=== PATIENT | male | born 1955 | race Caucasian/White ===

== ENCOUNTER 2016-07-11 00:23 | Inpatient (IN) | payer OTHER ==
[~2016-07-11] VITALS: Ht 188 cm; Wt 108.1 kg
[2016-07-11] VITALS (15 sets, daily range): BP systolic 112–150; BP diastolic 71–94; PULSE 80–99; RESP 16–27; O2SAT 92–100
--- NOTE | 2016-07-11 00:56 | ED.REPORT ---
HPI-Abd Pain M 40 and Over Date of Service Jul 11, 2016 ED Provider: Yousuf Cagle DO A 61 year old male with a history of appendectomy presents to the ED complaining of abdominal pain on this evening. He began to experience left- sided and mid abdominal pain this evening, with occasional spasms of sharp pain. This has been accompanied by nausea and vomiting, though the pt denies diarrhea or fever. The pt also denies any history of diverticulitis or kidney stones. Nursing Notes Stated Complaint: ABDOMINAL PAIN Chief Complaint: Male Abdominal Pain Nursing Notes Reviewed: Yes Allergies: Coded Allergies: No Known Allergies (Unverified , 07/11/16) General Time Seen by MD: 00:56 Chief Complaint Abdominal pain Hx Obtained From: Patient Arrived By: Walk-in Sudden in Onset?: No Onset Occurred: 1 - 4 hours ago Symptom Duration: Since onset Recent Healthcare: No recent doctor visit, No recent hospitalization Similar Sx Previous: No Past Medical History Past Medical History none reported Past Surgical History Reports: Appendectomy Reports: Back/neck surgery Smoking History Unknown if Ever Smoker Social History Alcohol Use: "Social" Other Social History: Good social support Ambulatory Status Independent Review of Systems Constitutional: Denies: Fever GI: Reports: Abdominal pain, Nausea, Vomiting, Denies: Diarrhea Musculoskeletal: Denies: Back pain Complete sys rev & neg: except as marked. Physical Exam Initial Vital Signs Vital Signs (First) Date Time Temp Pulse Resp B/P Pulse Ox O2 Delivery O2 Flow Rate FiO2 07/11/16 00:30 36.4 98 24 135/93 99 Room Air Initial VS: Reviewed, Vital signs abnormal General/Constitutional: Awake, Alert Respiratory / Chest: Atraumatic, Breath sounds NL, Breath sounds = bilat, No respiratory distress Cardiovascular: Heart rate NL, Regular rhythm, Heart sounds NL Abdomen: Atraumatic, Soft moderate left-sided and LLQ tenderness Back: Atraumatic, Full range of motion Head / Eyes: Atraumatic, Normocephalic, PERRL, EOMI ENT: Atraumatic, Airway patent, Mucous membranes moist Skin: Atraumatic, Color NL, No rash, Warm, Dry Neurologic: Oriented X3, Speech NL, No motor deficits, No sensory deficits Neck: Atraumatic, Supple, Full range of motion Upper Extremity / MS: Atraumatic, Full range of motion Lower Extremity / Pelvis / MS: Atraumatic, Full range of motion Psychiatric: Affect NL, Mood NL Interpretation & Diagnostics Lab Results Interpretation Result Diagram: 07/11/16 0120 07/11/16 0120 Test 07/11/16 01:20 07/11/16 02:00 White Blood Count 13.9th/mm3 (3.8-10.1) Red Blood Count 4.72mil/mm3 (4.40-5.80) Hemoglobin 15.0g/dL (13.8-17.2) Hematocrit 43.4% (41.0-50.0) Mean Corpuscular Volume 91.9fL (81-100) Mean Corpuscular Hemoglobin 31.8pg (27.0-35.0) Mean Corpuscular Hemoglobin Concent 34.6% (32.0-37.0) Red Cell Distribution Width 14.0% (12.3-15.4) Platelet Count 267bil/L (150-400) Neutrophils (%) (Auto) 78.9% (40-74) Lymphocytes (%) (Auto) 12.8% (14-46) Monocytes (%) (Auto) 7.3% (4-12) Eosinophils (%) (Auto) 0.4% (0-5) Basophils (%) (Auto) 0.3% (0-3) Prothrombin Time 10.3sec (8.1-12.5) Prothromb Time International Ratio 0.96ratio Sodium Level 139mEq/L (134-144) Potassium Level 4.0mEq/L (3.5-5.2) Chloride Level 99mEq/L (97-108) Carbon Dioxide Level 22mmol/L (18-29) Blood Urea Nitrogen 25mg/dL (8-27) Creatinine 1.44mg/dL (0.76-1.27) Estimat Glomerular Filtration Rate 53mL/min (>59) Glucose Level 143mg/dL (60-99) Calcium Level 9.5mg/dL (8.5-10.1) Magnesium Level 2.1mg/dL (1.6-2.6) Total Bilirubin 0.4mg/dL (0.0-1.2) Aspartate Amino Transf (AST/SGOT) 19U/L (0-50) Alanine Aminotransferase (ALT/SGPT) 27U/L (0-44) Alkaline Phosphatase 64U/L (25-160) Troponin T 0.010ug/L (0.0-0.011) Total Protein 7.0g/dL (6.4-8.4) Albumin 4.4g/dL (3.4-5.0) Lipase 31U/L (13-60) Urine Color Yellow (YELLOW) Urine Appearance Clear (CLEAR,HAZY) Urine pH 6.0 (5.0-8.0) Urine Specific [place] 1.020 (1.003-1.035) Urine Protein Negativemg/dL (NEG,TRACE) Urine Glucose (UA) Negativemg/dL (NEGATIVE) Urine Ketones Negativemg/dL (NEGATIVE) Urine Occult Blood Trace (NEGATIVE) Urine Nitrite Negative (NEGATIVE) Urine Bilirubin Negative (NEGATIVE) Urine Urobilinogen Normalmg/dL (NORMAL) Urine Leukocyte Esterase Negative (NEGATIVE) Urine RBC 0-2/hpf (0-2) Urine WBC 0-5/hpf (0-5) Urine Epithelial Cells Occasional/hpf (NONE-MOD) Urine Crystals None seen (NONE SEEN) Urine Bacteria Few/hpf (NONE-FEW) Urine Hyaline Casts None/lpf (NONE) Urine Granular Casts None seen (NONE SEEN) Urine Waxy Casts None seen (NONE SEEN) Urine Red Blood Cell Casts None seen (NONE SEEN) Urine White Blood Cell Casts None seen (NONE SEEN) Urine Mucus Present (None Seen) Urine Trichomonas None seen (NONE SEEN) Urine Yeast None (NONE SEEN) Urinalysis Comment None Urine Culture Reflexed Not indicated Lab Results Interpretation: Elevated white blood count at 13,900, mildly elevated creatinine, mildly elevated nonfasting glucose. Pulse Oximetry Interpretation Pulse Oximetry Interpretation: 99% on room air Pulse Oximetry: Pulse Ox normal ECG Interpretation ECG Interpretation: normal sinus rhythm with a rate of 76 Time: 01:39 Interpreted by: ED physician CT Abd / Pelvis Interpretation CONCLUSION: Moderate SBO. 4.2cm AAA. Prostatomegaly. Radiologist: Milagros Reid MD 07/01/2016-2:57:44 AM PDT Study type: Abdominal CT IV contrast Interpretation / Wet Read by: Interpret - Radiologist Re-Eval/Medical Decision Med Decision/Clinical Course 61-year-old male whose workup was initiated by Dr. Cagle and turned over to me at change of shift with CT pending. CT shows that he has a small bowel obstruction with a small amount of free fluid. His case was discussed with Dr. Díaz and Dr. Foy. He has an elevated white blood count and a mildly elevated troponin. He was started on Zosyn and hydration. NG tube was placed. He will be admitted to the hospital for conservative management with pending surgical consultation. Source of Hx: Old records Time of Eval: 03:05 Re-Evaluation/Progress Note: Care assumed by Dr. Salomon. Patient was informed of the results of his CT scan, with the finding of an SBO. Patient will be admitted to the hospital for further care. NG tube will be placed. AAA was also identified on CT scan, which the patient did not know about previously. Patient understands and agrees with this plan. All questions were addressed. Consultation #1: Referral / Consult Name: Lorene Foy DO Consulted With: Hospitalist Call Returned at: 03:10 Paraeducator: Will see patient, Agrees with eval, Agrees with plan, Accepts admit Note: Spoke with Dr. Foy, hospitalist, who agrees to accept admit. Requests surgeon consult. Consultation #2: Referral / Consult Name: Hernesto Díaz MD Consulted With: Surgeon Call Returned at: 03:16 Paraeducator: Will see patient, Agrees with eval, Agrees with plan Note: Spoke with Dr. Díaz, surgeon, who agrees to act as consult. Counseled Regarding: Diagnosis, Lab results, Need for admission Discharge & Departure Primary Impression: SBO (small bowel obstruction) Additional Impression: AAA (abdominal aortic aneurysm) without rupture Disposition: ADMITTED TO HOSPITAL Vital Signs - All Vital Signs Date Time Temp Pulse Resp B/P Pulse Ox O2 Delivery O2 Flow Rate FiO2 07/11/16 00:30 36.4 98 24 135/93 99 Room Air )( All Prior VS Reviewed: Yes Condition: Stable Referrals: Eloy Brown ND (PCP) Care Transferred to: Dr. Salomon Care Transferred at: 03:00 Scribe Attestation Portions of this note were transcribed by Viry Aguilar. I, Dr. Cagle personally performed the history, physical exam and medical decision-making; I reviewed and confirmed the accuracy of the information in the transcribed note. Signed by: Aron Lorenzo, 07/11/16 and 0153. Portions of this note were transcribed by Eunice Contreras. I, Dr. Salomon personally performed the history, physical exam and medical decision-making; I reviewed and confirmed the accuracy of the information in the transcribed note. Signed by: Aron Parsons, 07/11/2016 0329. copies to: Eloy Brown ND, Todd P DO Jul 11, 2016 00:56 VIRY AGUILAR Jul 11, 2016 01:19 Eunice Contreras Jul 11, 2016 03:10 Nakul Salomon MD Jul 11, 2016 07:04
[2016-07-11] MEDS ORDERED: 0.9% Sodium Chloride 1,000 ML IV ONE ×2 (01:05→02:00)
[2016-07-11 01:25] LABS: BASOPHILS % (AUTO) 0.3 % (0-3); EOSINOPHILS % (AUTO) 0.4 % (0-5); MONOCYTES % (AUTO) 7.3 % (4-12); Mean Corpuscular Hemoglobin 31.8 pg (27.0-35.0); Mean Corpuscular Volume 91.9 fL (81-100); NEUTROPHILS % (AUTO) 78.9 % (40-74); Platelet Count 267 bil/L (150-400)
[2016-07-11 01:43] LABS: INR 0.96 ratio
[2016-07-11] MEDS: Ondansetron 2 mg/mL 2 mL Inj IVPUSH PRN ×2 (01:43→08:21)
[2016-07-11] MEDS: HYDROmorphone 0.5 mg/0.5 mL iSecure Syringe IVPUSH PRN ×2 (01:43→03:24)
[2016-07-11 02:03] LABS: Magnesium 2.1 mg/dL (1.6-2.6); TROPONIN T 0.01 ug/L (0.0-0.011)
[2016-07-11 02:29] LABS: APPEARANCE,URINE CLEAR (CLEAR,HAZY); COLOR,URINE YELLOW (YELLOW); OCCULT BLOOD,URINE TRACE (NEGATIVE); UROBILINOGEN,URINE NORMAL (NORMAL)
[2016-07-11] MEDS ORDERED: Piperacillin-Tazo 3.375 Gm Inj 3.375 GM in Dextrose 5% Minibag Plus 50 ML IV ONE (02:50)
[2016-07-11] MEDS ORDERED: Ondansetron 2 mg/mL 2 mL Inj IVPUSH PRN ×2 (03:35→16:45)
[2016-07-11] MEDS: 0.9% Sodium Chloride 1,000 ML IV SCH ×2 (04:52→14:34)
--- NOTE | 2016-07-11 05:28 | PCM.HPMED ---
Subjective Date of Service Jul 11, 2016 Primary Provider: Admitting Physician: Lorene Foy DO Primary Care Physician: Eloy Brown ND Attending Physician: Lorene Foy DO Admit Status: From the Emergency Department Chief Complaint: abdominal pain History of Present Illness: 61yoM with minimal past medical history admitted due to concern for small bowel obstruction. History obtained from patient and . Prior to presentation patient began having diffuse 6-8/10 abdominal pain following a meal. He has never felt pain similar to this but does endorse GERD symptoms in the past two weeks. With pain worsening he came to the ED for further evaluation. While on his way he had one bout of emesis. Unknown by patient if hematemesis present. Past history includes appendectomy. No history of colonoscopy. Family history of pancreatic cancer. Review of Systems: complete review of symptoms obtained. positive as per HPI otherwise negative. Allergies Coded Allergies: No Known Allergies (Unverified , 07/11/16) Home Medications none PMH Possible GERD Surgical History appendectomy Family History Father: pancreatic cancer Social History Occupation: [employer] Hx Alcohol Use: Yes Alcoholic Drinks Per Day: 1-2 glasses of wine. Hx Substance Use: No Smoking Status: Unknown if Ever Smoker Living Arrangement: with Family (DPOA ) Exam Vital Signs Vital Sign - Last Date Time Temp Pulse Resp B/P Pulse Ox O2 Delivery O2 Flow Rate FiO2 07/11/16 05:17 83 07/11/16 03:45 36.2 16 118/70 98 Room Air Intake and Output 07/10/16 07/10/16 07/11/16 Cumulative From/Thru 15:00 23:00 07:00 07/11/16 00:30 - 07/11/16 04:02 Intake Total 2000 ml 2000 ml Balance 2000 ml 2000 ml Intake IV Total 2000 ml 2000 ml Exam General: Alert, Oriented X3, Cooperative, No acute Distress Eyes: PERRLA, Scleral Anicteric Mouth: Mouth Normal, Mucous Membranes Dry/[place] Neck: Supple, no Thyromegaly, trachea central. Chest & Lungs: Clear to auscultation & percussion, No adventitious breath sounds, no crackles, no wheeze Cardiovascular: Normal S1, Normal S2, No Murmurs/Rubs/Gallops, Regular Rate/ Rhythm, Murmur, Other (No JVD, no peripheral edema) Pulses: Radial (present and equal), Dorsalis Pedi (present and equal) Abdomen: Soft, tender in the epigastric region, Non-distended, decreased bowel tones. Musculoskeletal: Unremarkable. Normal range of motion, no swollen or erythematous joints Extremities: No edema, no cyanosis, no clubbing. Skin: No rashes. Warm and dry, no erythematous areas Neurological: Grossly neurologically intact, has generalized weakness, Normal Speech, Sensation Intact Lymphatic: Lymph nodes Cervical and Axillary not palpable Lab and Diagnostics Result Diagram: 07/11/16 0120 07/11/16 012 X-Rays, CTs and MRIs CT Abd / Pelvis Interpretation CONCLUSION: Moderate SBO. 4.2cm AAA. Prostatomegaly. Radiologist: Milagros Reid MD 07/01/2016-2:57:44 AM PDT Study type: Abdominal CT IV contrast Interpretation / Wet Read by: Interpret - Radiologist Assessment & Plan 61yoM with minimal past medical history admitted due to concern for small bowel obstruction. Small bowel obstruction, acute, POA -NPO -mIVF -NG to low intermittent suction -surgery consulted prior to admission, recs appreciated DOMINGA, acute, POA -likely acute, no history of renal dysfunction -pre-renal vs intrarenal -repeat creatinine -avoid nephrotoxic agents Elevated glucose, acute -no h/o diabetes -hgbA1c pending Pain Evaluation: Adequate Pain Control GI Prophylaxis: Not indicated VTE Prophylaxis: Sub-Q Heparin (Unfractionated) Resuscitation Status: CPR: Attempt Resuscitation Lorene Foy DO Jul 11, 2016 05:28
--- NOTE | 2016-07-11 05:36 | NUR ---
Admit to room 3030 @ 04:00 with abd pain. Arrived with NG Tube placed, verified 65cm and connected to vacuum intermittent low suction draining clear with minimal specs of earl red blood from minor nose bleed. VSS @ 112/73 p 83 afebrile 37.0 and 92% O2 sat on RA. Oriented to room and POC on whiteboard. Up independent to BR and refused non-slip socks indicating these are fine. Takes no medications at home, high risk TERA added to process plans, uses mouth bite guard @ home, family agreed to bring in if staying another night. Abd pain 03/23 and acceptable.
[2016-07-11] MEDS ORDERED: Succinylcholine Chloride 20 mg/mL 5 mL Inj ONE (07:29)
[2016-07-11] MEDS ORDERED: Neostigmine 1 mg/mL 10 mL Inj ONE (07:29)
[2016-07-11] MEDS ORDERED: Ondansetron 2 mg/mL 2 mL Inj ONE ×2 (07:29)
[2016-07-11] MEDS ORDERED: Rocuronium 10 mg/mL 5 mL Inj ONE (07:29)
[2016-07-11] MEDS ORDERED: fentaNYL-PF 50 mCg/mL 2 mL Inj ONE (07:29)
[2016-07-11] MEDS ORDERED: Propofol 10,000 mCg/mL 20 mL Inj ONE (07:29)
[2016-07-11] MEDS ORDERED: EPHEDrine/NS 5 mg/mL 5 mL Syringe ONE (07:29)
[2016-07-11] MEDS ORDERED: Glycopyrrolate 0.2 MG/ML 1mL Inj ONE (07:29)
--- NOTE | 2016-07-11 07:29 | DRSVH ---
PROCEDURE: CT ABDOMEN AND PELVIS WITH CONTRAST ([id number]) INDICATIONS: llq pain, vomiting TECHNIQUE: After the administration of intravenous contrast, 5 mm thick sections acquired from the diaphragm to the symphysis. 5 mm coronal and sagittal reformats were acquired. For radiation dose reduction, the following was used: automated exposure control, adjustment of mA and/or kV according to patient siz e. COMPARISON: None. FINDINGS: Image quality: Excellent. ABDOMEN: Lung bases: Lung bases are clear. Heart size is normal. Solid organs: Liver is mildly enlarged with steatosis. The spleen is normal in size. There are sever al ill-defined areas of subcentimeter low-attenuation within the liver, too small to definitively vincent racterize. There is a focal area of enhancement in the posterior right hepatic lobe measuring 16 mm. No priors are available for comparison. Gallbladder is contracted but grossly unremarkable. Biliary system is non dilated. Pancreas enhances normally. No adrenal nodules. Kidneys demonstrate normal size and enhancement, without hydronephrosis. Peritoneum and bowel: There are dilated fluid filled small bowel loops predominantly within the mid a bdomen. There is minimal dependent pelvic fluid. Colonic diverticula are present without visualized i nflammatory change. Colonic stool is present. Nodes and vessels: No retroperitoneal or mesenteric adenopathy by size criteria. Aorta demonstrates infrarenal aneurysmal dilation measuring 46 mm in transverse dimension. A Miscellaneous: No ventral hernias. PELVIS: Genitourinary: Bladder wall thickness is diffusely thickened. It is incompletely distended. The pros henderson gland is enlarged. Miscellaneous: No inguinal hernias or adenopathy. Bones: No suspicious bony lesions. No vertebral body compression fractures. IMPRESSION: 1. Dilated fluid-filled small bowel loops most suggests a partial small bowel obstruction. No definit e transition point identified. 2. Diverticulosis. 3. Infrarenal abdominal aortic aneurysm as above. No priors are available for comparison. Recommend i nterval followup to document stability. 4. Prostate hypertrophy. Recommend correlation to PSA levels. 5. Prominent stool suggestive of constipation. 6. Nonspecific punctate foci of low attenuation within the liver, too small to definitively character ize. No priors are available for comparison. In addition, there is a 16 mm focus of enhancement withi n the posterior right hepatic lobe as above. This could be benefits representative of a hemangioma. Focal ultr asound may be obtained for additional evaluation Dictated by: Leeann Goldsmith M.D. on 07/11/2016 at 7:21 Approved by: Leeann Goldsmith M.D. on 07/11/2016 at 7:27
[2016-07-11 07:50] LABS: BASOPHILS % (AUTO) 0.3 % (0-3); EOSINOPHILS % (AUTO) 0.2 % (0-5); MONOCYTES % (AUTO) 8.8 % (4-12); Mean Corpuscular Hemoglobin 32.2 pg (27.0-35.0); Mean Corpuscular Volume 93.3 fL (81-100); NEUTROPHILS % (AUTO) 75.2 % (40-74); Platelet Count 247 bil/L (150-400)
[2016-07-11] MEDS: Heparin 5,000 Unit/mL Inj SUBQ SCH ×3 (08:30→23:15)
--- NOTE | 2016-07-11 09:49 | DRSVH ---
PROCEDURE: X-RAY ACUTE ABDOMINAL SERIES ([id number]) INDICATIONS: F/U SBO TECHNIQUE: One view chest and two views of the abdomen were acquired. COMPARISON: None. FINDINGS: Surgical changes and devices: None. Chest: Lungs are clear. Heart size is normal. No pleural effusions. No pneumoperitoneum. Abdomen: Bowel gas pattern demonstrates dilated fluid-filled loops of small bowel with air-fluid lev els. Appearance is not significantly changed compared to 07/11/16 CT exam. Contrast is noted within th e rectum. No suspicious calcifications. Visualized solid organ contours appear normal. Bones: No suspicious bony lesions. IMPRESSION: Partial small bowel obstruction without significant interval change. Dictated by: Leeann Goldsmith M.D. on 07/11/2016 at 9:42 Approved by: Leeann Goldsmith M.D. on 07/11/2016 at 9:48
--- NOTE | 2016-07-11 13:25 | NUR ---
Social Work Note: Screen Note Data& Assessment: EMR reviewed. Patient is a 61 year old male admitted on 07/11/16 for Abdominal Pain. Pt has [employer] for insurance coverage and sees Eloy Brown MD for primary care. Pt lives in [place] with family and is independent at baseline. Pt is currently independent in his room. No discharge needs identified at this time. SW to continue to follow if any needs arise. Plan: Anticipated discharge home via POV when medically ready. No discharge needs identified at this time. SW to continue to follow if any needs arise. Arcelia Mcmillan, DIANNA, ACM
--- NOTE | 2016-07-11 13:35 | CONS ---
[address] [address] CONSULTATION REPORT PATIENT: AL LIRIANO : 1955 MR#: [id number] ADMIT: 07/11/2016 JOB ID: [id number] DATE OF SERVICE: HISTORY OF PRESENT ILLNESS: I have been asked to see this 61-year-old man by the emergency department and the hospitalist service. Admitted to the medicine service with a small bowel obstruction. The patient has never had obstructive symptoms before. The only surgical history is of a distant appendectomy, done open, many decades ago. No chronic issues of obstipation or constipation. He has been trying to eat "more healthily," including raw carrots, and after dinner yesterday evening, began having mid abdominal pain and cramping with nausea and vomiting, decreased flatus, and presented to the emergency department. PAST MEDICAL HISTORY: Back and neck surgery, appendectomy. MEDICATIONS: None. ALLERGIES: None. SOCIAL HISTORY: , negative daily alcohol use, negative tobacco. FAMILY HISTORY: Noncontributory. REVIEW OF SYSTEMS: Cardiac: Negative paroxysmal nocturnal dyspnea or dyspnea on exertion. Negative rapid heart rate. Pulmonary: Negative chronic cough, history of pneumonia, chronic shortness of breath. GI negative except as above. Musculoskeletal negative. Neuro negative. PHYSICAL EXAMINATION: The patient is seen in his hospital room in no acute distress with nasogastric tube in place. Nasogastric tube output has not been recorded but is bilious in the drain tube. Temperature is recorded at 37. Pulse is in the 80s. Blood pressure was last recorded at 112/73. His sclerae are clear. Lungs are clear. Heart sounds are regular. His abdomen is distended, high-pitched bowel tones with rushes and tinkles, tympanic. There is no focal tenderness. Rectal is not performed. LABORATORY: Admission labs, white count was 13.9, repeat this morning is 11.1. His hematocrit went from 43 to 40 with hydration. Chemistries are normal except for mild elevation of his creatinine at 1.44. His glucose was 143. Lipase and LFTs were normal. His lactic acid last night was 2.4 but repeat is 1.5. IMAGING: I have seen his abdominal CT, both the report and the images, and this does show what appears to be a high-grade small bowel obstruction with a transition somewhere in the right mid abdomen consistent with his appendectomy scar. IMPRESSION/PLAN: Relative onset of partial small bowel obstruction with transition point consistent with adhesive disease from his appendectomy. Patient appears to be fairly obstructed still despite placement of NG tube. I will repeat plain films today and consider recommending early surgical intervention if the dilated loop of small bowel seen on the bend up film of the CT scan is increasing in size. I outline the general recommendation of nasogastric tube decompression and surgery if the patient has not improved within the first 24 hours, but I will re-evaluate him this afternoon after his repeat films.
--- NOTE | 2016-07-11 15:50 | NUR ---
OR Pt. transferred to OR at 1550 in his own bed. NG clamped and IV SL by OR nurse. Informed consent signed.
[2016-07-11] MEDS ORDERED: Lactated Ringer's 500 ML IV PRN (16:44)
[2016-07-11] MEDS ORDERED: Lactated Ringer's 1,000 ML IV SCH (16:44)
--- NOTE | 2016-07-11 16:44 | PCM.HPANE ---
Patient Data Surgeon Admitting Provider:Lorene Foy DO Attending Provider:Lorene Foy DO Primary Care Physician:Eloy Brown ND Other Provider: Reason for Visit Abdominal Pain Ht/WT & BMI Height (Feet): 6 Height (Inches): 2.00 Weight (Kilograms): 104.550 Body Mass Index 29.58 Allergies Coded Allergies: No Known Allergies (Unverified , 07/11/16) Past Anesthesia History Anesthesia History: Denies:: Anesthesia Reactions Diabetes History Hx Diabetes?: No MRSA MRSA: No History History of ENT Problems?: No HEENT History: Denies:: Abnormal Airway Cataracts Difficult Intubation Dysphagia Glaucoma Hearing Problem Sinus Problem TMJ Denture Type: None Teeth Condition: Within Normal Limits Hx of Heart Problems?: Yes Cardiovascular History: Positive for:: Heart Murmur Denies:: Congestive Heart Failure Hypertension Hx of Respiratory Problem?: No Respiratory History: Denies:: Tuberculosis Hx Neurologic Problems?: No Hx of GI Problems?: Yes Other History/Comment Partial bowel obstruction Hx of Problems?: Yes Genitourinary History: Positive for:: Urinary Tract Infection Male Hx: Positive for:: Prostate Problems (Intermittent - BPH) Denies:: Scrotal Mass Testicular Surgery Hx Musculoskeletal Problems?: Yes Musculoskeletal History: Positive for:: Back Injury (Broken neck Approx 1997) Denies:: Joint Replacement Musculoskeletal Trauma Hx of Psycho/Social Problems?: No Hx Surgeries?: Yes (Neck surgery, Appy, AC separation) Hx Any Other Health Problems?: Yes Other History: Positive for:: Hospitalization History Blood Transfusions: Positive for:: Accept Blood Products? Denies:: Blood Transfuse Reaction Blood Transfusions (Can't recall) Hx Diabetes: No Occupation: [employer] Hx Alcohol Use: YesAlcoholic Drinks Per Day: 1-2 glasses of wine.Hx Substance Use: No Smoking Status: Unknown if Ever Smoker Have You Smoked inLast 12 mo: No Stop/Bang Treated for Sleep Apnea?: Yes Do You Have a CPAP Machine?: No S-Snoring: Do You Snore Loudly: Yes T-Tired: feel tired, fatigued: Yes O-Obsered: Observed not breath: Yes P-Blood Pressure: treated: No B- Body Mass Index > 35 kg/m2: No A- Age over 50: Yes N- Neck Large Circumference: Yes G- Gender Male: Yes TERA Total Score: 5 Risk Assessment Category Category 1A: Patient has history of documented sleep apnea, and HAS NOT received any narcotic, sedative or anesthesia administration during this stay. Category 1B: Patient has history of documented sleep apnea, and HAS received any narcotic , sedative or anesthesia administration during this stay Category 2: Patient has SUSPECTED Obstructive Sleep Apnea, and HAS received any narcotic , sedative or anesthesia administration during this stay. Category 3: Patient has SUSPECTED Obstructive Sleep Apnea and HAS NOT received narcotic, sedative or anesthesia administration during this stay. Category 4: Outpatient in Procedural Areas with known sleep apnea or who screen positive for High Risk via the STOP/BANG questionnaire. Exam Exam Vital Signs Vital Signs Date Time Temp Pulse Resp B/P Pulse Ox O2 Delivery O2 Flow Rate FiO2 07/11/16 12:34 36.7 95 18 129/81 96 Room Air 07/11/16 10:38 36.8 80 18 137/88 95 Room Air 07/11/16 09:10 83 General Appearance: Alert, Oriented X3, Cooperative HEENT/AIRWAY: MP 1, MP 2, MP 3 Lungs: Clear to Auscultation, Normal Air Movement Heart: Exam Unremarkable, Regular Rate/Rhythm Meds/Labs/Diagnostics Admission Meds Current Medications Sodium Chloride 1,000 ml @ 0 mls/hr Q0M ONCE IV Last administered on 01:43; Start 07/11/16 at 01:05; Stop 07/11/16 at 01:07; Status DC Sodium Chloride 1,000 ml @ 0 mls/hr Q0M ONCE IV Last administered on 02:17; Start 07/11/16 at 02:00; Stop 07/11/16 at 02:01; Status DC Piperacillin Sod/ Tazobactam Sod 3.375 gm/Dextrose/ Water 50 ml @ 100 mls/hr ONCE ONCE IV Last administered on 07/11/16 03:25; Start 07/11/16 at 02:50; Stop 07/11/16 at 03:19; Status DC Sodium Chloride (Normal Saline) 1,000 ml @ 100 mls/hr Q10H IV Last administered on 07/11/16 14:34; Start 07/11/16 at 03:35 Labs Test 07/11/16 01:20 07/11/16 02:00 07/11/16 03:45 07/11/16 07:35 Prothrombin Time 10.3sec (8.1-12.5) Prothromb Time International Ratio 0.96ratio Sodium Level 139mEq/L (134-144) Potassium Level 4.0mEq/L (3.5-5.2) Chloride Level 99mEq/L (97-108) Carbon Dioxide Level 22mmol/L (18-29) Blood Urea Nitrogen 25mg/dL (8-27) Creatinine 1.44mg/dL (0.76-1.27) Estimat Glomerular Filtration Rate 53mL/min (>59) Glucose Level 143mg/dL (60-99) Calcium Level 9.5mg/dL (8.5-10.1) Magnesium Level 2.1mg/dL (1.6-2.6) Total Bilirubin 0.4mg/dL (0.0-1.2) Aspartate Amino Transf (AST/SGOT) 19U/L (0-50) Alanine Aminotransferase (ALT/SGPT) 27U/L (0-44) Alkaline Phosphatase 64U/L (25-160) Troponin T 0.010ug/L (0.0-0.011) Total Protein 7.0g/dL (6.4-8.4) Albumin 4.4g/dL (3.4-5.0) Lipase 31U/L (13-60) Urine Color Yellow (YELLOW) Urine Appearance Clear (CLEAR,HAZY) Urine pH 6.0 (5.0-8.0) Urine Specific Coleman 1.020 (1.003-1.035) Urine Protein Negativemg/dL (NEG,TRACE) Urine Glucose (UA) Negativemg/dL (NEGATIVE) Urine Ketones Negativemg/dL (NEGATIVE) Urine Occult Blood Trace (NEGATIVE) Urine Nitrite Negative (NEGATIVE) Urine Bilirubin Negative (NEGATIVE) Urine Urobilinogen Normalmg/dL (NORMAL) Urine Leukocyte Esterase Negative (NEGATIVE) Urine RBC 0-2/hpf (0-2) Urine WBC 0-5/hpf (0-5) Urine Epithelial Cells Occasional/hpf (NONE-MOD) Urine Crystals None seen (NONE SEEN) Urine Bacteria Few/hpf (NONE-FEW) Urine Hyaline Casts None/lpf (NONE) Urine Granular Casts None seen (NONE SEEN) Urine Waxy Casts None seen (NONE SEEN) Urine Red Blood Cell Casts None seen (NONE SEEN) Urine White Blood Cell Casts None seen (NONE SEEN) Urine Mucus Present (None Seen) Urine Trichomonas None seen (NONE SEEN) Urine Yeast None (NONE SEEN) Urinalysis Comment None Urine Culture Reflexed Not indicated Lactic Acid Level 1.5mmol/L (0.4-2.0) White Blood Count 11.1th/mm3 (3.8-10.1) Red Blood Count 4.35mil/mm3 (4.40-5.80) Hemoglobin 14.0g/dL (13.8-17.2) Hematocrit 40.6% (41.0-50.0) Mean Corpuscular Volume 93.3fL (81-100) Mean Corpuscular Hemoglobin 32.2pg (27.0-35.0) Mean Corpuscular Hemoglobin Concent 34.5% (32.0-37.0) Red Cell Distribution Width 14.0% (12.3-15.4) Platelet Count 247bil/L (150-400) Neutrophils (%) (Auto) 75.2% (40-74) Lymphocytes (%) (Auto) 15.3% (14-46) Monocytes (%) (Auto) 8.8% (4-12) Eosinophils (%) (Auto) 0.2% (0-5) Basophils (%) (Auto) 0.3% (0-3) Plan Impression Patient chart reviewed, patient interviewed and anesthestic plan with risks, benefits, and alternatives discussed, and informed consent obtained. ASA Physical Status: ASA2 Plus Emergency Anesthetic Plan: GA Bene/Risks/Altern/Consents: Yes HP Complete Prior to Induction: Yes Hernesto Wu MD Jul 11, 2016 16:44
[2016-07-11] MEDS ORDERED: EPHEDrine Sulfate 50 mg/mL Inj IVPUSH PRN (16:45)
[2016-07-11] MEDS ORDERED: Dexamethasone 4 mg/mL Inj IVPUSH PRN (16:45)
[2016-07-11] MEDS ORDERED: MetoCLOpramide 5 mg/mL 2 mL Inj IVPUSH PRN (16:45)
[2016-07-11] MEDS ORDERED: Phenylephrine 10,000 mCg/mL Inj IVPUSH PRN (16:45)
[2016-07-11] MEDS ORDERED: HYDROmorphone 1 mg/mL Inj IVPUSH PRN (16:45)
[2016-07-11] MEDS ORDERED: fentaNYL-PF 50 mCg/mL 2 mL Inj IVPUSH PRN (16:45)
[2016-07-11] MEDS ORDERED: Lactated Ringer's 1,000 ML IV ONE ×2 (16:55→17:41)
[2016-07-11] MEDS ORDERED: Bupivacaine-MPF 0.25%/EPI 30 mL Inj INJ ONE (17:23)
--- NOTE | 2016-07-11 17:57 | PCM.ANEP1 ---
Post Anesthesia Phase 1 PACU Phase 1 Assessment Vital Signs Vital Signs Date Time Temp Pulse Resp B/P Pulse Ox O2 Delivery O2 Flow Rate FiO2 07/11/16 17:51 37.2 85 27 146/80 100 Simple Mask 8 07/11/16 12:34 36.7 95 18 129/81 96 Room Air 07/11/16 10:38 36.8 80 18 137/88 95 Room Air Anesthetic Administered: GA Level of Alertness: Awake, talking Pain: No (Level 3 - back) Pain Scale Score: 2 Nausea or Vomiting: No Cardiovascular Function and Hy: Yes Oxygen Delivery: Simple Mask Lungs: Clear to Auscultation, Normal Air Movement Complications: No Hernesto Wu MD Jul 11, 2016 17:57
--- NOTE | 2016-07-11 18:50 | NUR ---
Post-op Pt. returned to [facility] at 1831. On arrival, he was alert, ARTIS, and talking. 3 lap. sites on. L. abdomen. Dressing (telfa and bio-occlusive) CDI. Pt. denied any pain.
--- NOTE | 2016-07-11 18:59 | OP ---
[address] [address] OPERATIVE REPORT PATIENT: HERNESTO LIRIANO : 1955 MR#: [id number] ADMIT: 07/11/2016 JOB ID: [id number] DATE OF SURGERY: 07/11/2016 PREOPERATIVE DIAGNOSIS(ES): Small bowel obstruction. POSTOPERATIVE DIAGNOSIS(ES): Small bowel obstruction PROCEDURE: Laparoscopic lysis of adhesions. SURGEON: Dr. Hernesto Díaz. LEGAL TRANSCRIPTIONIST: Landen Tellez PA-C, Mark Laguna, MS3. INDICATIONS: A 61-year-old man with a picture of a high-grade partial small bowel obstruction. FINDINGS: 1. 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 2. The patient had two internal hernias caused by adhesions of the greater omentum to the anterior abdominal wall and the right abdomen. He had dilated small bowel proximally with what appeared to be some petechial hemorrhages consistent with a high-grade partial small bowel obstruction or even some sort of trap in the internal hernia. However, when we looked in with the scope, we could not see any bowel trapped in the internal hernias which were divided. We ran the small bowel from the ileocecal valve to the ligament of Treitz and although we came across what appeared to have been a transition point with normal nondilated small bowel. Distal to the dilated small bowel we did not enter encounter any other additional adhesions. PROCEDURE IN DETAIL: Patient brought to the operating room. General anesthetic was administered. SCOAP protocol was followed. Surgical time-out was performed. We obtained access with an optical trocar in the left upper quadrant. We entered the abdomen, insufflated. After bringing up the abdominal wall, we placed two additional ports on the left abdomen. It is noted we could see that there was an adhesion of the greater omentum to the right lower quadrant as well as an additional adhesion of the greater omentum in the right mid abdomen that created an internal hernia. Anteriorly though, we did not see any trapped bowel. The patient was positioned head down and tilted to the left. We could see that the proximal small bowel was dilated with some petechial hemorrhages although everything appeared viable. We proceeded to the ileocecal valve and ran the small bowel from the ileocecal valve to the ligament of Treitz. Distal small bowel was primarily decompressed though. Part of the terminal ileum seemed to be fluid-filled. We did encounter the point where the small bowel was markedly decompressed with a proximal transition point, but there was no adhesion at this point and there was no fixed obstruction as we watched peristalsis. Having satisfied ourselves that there was no remaining source of a mechanical obstruction and, as well, that there was nothing suggestive of primary small bowel pathology such as mesenteric fat wrapping to suggest Crohn disease, we returned to the ileocecal valve and ran the distal small bowel one more time. I got the impression that fluid was passing through this previously decompressed area, and I think it may well be possible that the patient did have a loop of small bowel stuck in this internal hernia causing his problem that decompressed itself spontaneously with a combination of general anesthetic and abdominal insufflation. Other possibility is that he never did have a mechanical small bowel obstruction due to adhesions but simply had some sort of GI dysmotility, most likely attributable to some sort of viral infection. These findings were discussed with the patient's after the procedure. Having run the small bowel and satisfying ourselves that there was nothing further that was required, we let our CO2 out, removed our ports and closed the wounds with absorbable suture. The patient tolerated the procedure well.
[2016-07-12] MEDS: 0.9% Sodium Chloride 1,000 ML IV SCH (02:13)
[2016-07-12 02:24] VITALS: BP 122/82; PULSE 90; RESP 20; O2SAT 96
[2016-07-12 06:33] VITALS: BP 123/74; PULSE 86; RESP 20; O2SAT 94
--- NOTE | 2016-07-12 06:35 | NUR ---
Uneventful Night: Pt had an uneventful night, no c/o pain, chest pain or SOB. Pt slept most of the night, pleasant and cooperative with care.
[2016-07-12] MEDS: Heparin 5,000 Unit/mL Inj SUBQ SCH (08:36)
--- NOTE | 2016-07-12 10:58 | PCM.PNSURG ---
Subjective Date of Service: July 12, 2016 Date of Service: July 12, 2016 Visit Information: Reason for Visit Abdominal Pain Surgery/Surgery Date Post-Op Day # 1 Date of Admission: Jul 11, 2016 at 03:23 Hospital Day # Subjective: Pt seen today on medical floor. Tolerated regular diet this am even though supposed to be NPO... In any case, denies fevers chills, chest pain or shortness of breath. Had a good BM and has no nausea or vomiting. Mild incisional pain noted only. Unsure about report of aortic enlargement noted on CT. Postop General: No Complaints (only mild incisional pain noted.) Gastrointestinal: Good Appetite, Tolerating Oral Feedings, No N/V, Passing Flatus, Passing Stool Postop Activity: Ambulating Independently Objective Vital Sign- Last 8 Hours Date Time Temp Pulse Resp B/P Pulse Ox O2 Delivery O2 Flow Rate FiO2 07/12/16 06:33 36.7 86 20 123/74 94 Room Air Intake and Output- Last 8 Hour 07/12/16 Cumulative From/Thru 07:00 07/11/16 00:30 - 07/12/16 06:41 Intake Total 1326 ml 5459 ml Output Total 800 ml Balance 1326 ml 4659 ml Intake Oral 250 ml 650 ml IV Total 1076 ml 4809 ml Output Gastric Drainage Total 800 ml # Voids 2 4 # Bowel Movements 1 General: Alert, Oriented X3, Cooperative, No Acute Distress Neck: Supple Lungs: Clear to Auscultation Heart: Exam Unremarkable Abdomen: Soft, Appropriately tender Extremities: Distal Pulses Palpable Catheters: None Result Diagram: 07/11/16 0735 07/11/16 0120 Assessment & Plan Impression Stable post operative course status post lysis of adhesions POD 1 Problems: Plan May discharge from surgery standpoint. Follow up in PA clinic in 2 weeks. DC on percocet. No abx necessary. Reg diet. May shower after removing tegaderm in 24 hours and allow steris to fall off normally. Do not drive with narc use, prefer nsaid or tylenol for waking hours. Pain Management: Percocet on discharge. VTE Prophylaxis: Sub-Q Heparin (Unfractionated) Resuscitation Status: CPR: Attempt Resuscitation Amadou Tellez PA-C July 12, 2016 10:58
--- NOTE | 2016-07-12 10:59 | NUR ---
SW - Readiness for Discharge Data& Assessment: EMR reviewed. Patient is a 61 year old male on day 1 of hospitalization for abdominal pain. Per morning rounds pt is likely to discharge home later today and is up and independent in room. Pt to discharge home via family in POV when medically stable. No discharge needs identified at this time. SW to continue to follow if any needs arise. Assessment: Pt who is independent at baseline. Plan: Anticipated discharge home via POV when medically ready. No discharge needs identified at this time. SW to continue to follow if any needs arise. VIKTOR Nguyen
[2016-07-12] MEDS ORDERED: OXYC1TAB24 PO (11:51)
--- NOTE | 2016-07-12 11:53 | PCM.DIMED ---
Discharge Instructions Date of Service July 12, 2016 Dates of Hospitalization Jul 11, 2016 at 03:23 Discharge Diagnosis Discharge Diagnosis Small bowel obstruction, Status post laproscopy, resolved. Diet No restrictions Activity Limited until seen by PCP Call your provider Fever or Chills, Shortness of breath, Vomitting Patient Instructions Follow-up plan Follow up with surgeon in 2 week following discharge. Also recommend FU with PCP in next 1-2 weeks for continuity. Follow-up Provider: Eloy Brown ND Follow-up with PCP in: 2 weeks Coleman Holman DO July 12, 2016 11:53
--- NOTE | 2016-07-12 12:00 | PCM.DC.MED ---
Discharge Summary Date of Service July 12, 2016 Dates of Hospitalization Date of Hospital Admission Jul 11, 2016 at 03:23 Date of Discharge: July 12, 2016 Providers: Admitting Physician: Lorene Foy DO Primary Care Physician: Eloy Brown ND Attending Physician: Lorene Foy DO Diagnosis at Time of Discharge Diagnosis at Time of Discharge Small bowel obstruction, Status post laproscopy, resolved. Consultations General Surgery, Dr. Díaz. Procedures XRay, CTs & MRIs CT Abd / Pelvis Interpretation CONCLUSION: Moderate SBO. 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 Prostatomegaly. Radiologist: Milagros Reid MD 07/01/2016-2:57:44 AM PDT Study type: Abdominal CT IV contrast Interpretation / Wet Read by: Interpret - Radiologist Brief History As per HPI by Dr. Foy, "61yoM with minimal past medical history admitted due to concern for small bowel obstruction. History obtained from patient and . Prior to presentation patient began having diffuse 6-8/10 abdominal pain following a meal. He has never felt pain similar to this but does endorse GERD symptoms in the past two weeks. With pain worsening he came to the ED for further evaluation. While on his way he had one bout of emesis. Unknown by patient if hematemesis present. Past history includes appendectomy. No history of colonoscopy. Family history of pancreatic cancer. " Hospital Course # Small bowel obstruction, acute, POA - Status post laproscopy with release of obstruction. Procedure extremely well tolerated, pt had stool shortly following procedure. Diet advanced to regular by morning. Pain was minimal, well controlled with PRN medications. - Discharged home with plan to FU with surgical PA, Geoff Schuster in 2 weeks following D/C # DOMINGA, acute, POA: - Likely due to volume depletion, consider FU out patient. - PO intake improved greatly on discharge, back to baseline. Pushing of fluids orally encouraged. #Elevated glucose, acute - Likely acute process due to stress. Exam Vital Signs (Last) Date Time Temp Pulse Resp B/P Pulse Ox O2 Delivery O2 Flow Rate FiO2 07/12/16 06:33 36.7 86 20 123/74 94 Room Air 07/11/16 18:35 2.00 Test 07/11/16 01:20 07/11/16 02:00 07/11/16 03:45 07/11/16 07:35 Prothrombin Time 10.3sec (8.1-12.5) Prothromb Time International Ratio 0.96ratio Sodium Level 139mEq/L (134-144) Potassium Level 4.0mEq/L (3.5-5.2) Chloride Level 99mEq/L (97-108) Carbon Dioxide Level 22mmol/L (18-29) Blood Urea Nitrogen 25mg/dL (8-27) Creatinine 1.44mg/dL (0.76-1.27) Estimat Glomerular Filtration Rate 53mL/min (>59) Glucose Level 143mg/dL (60-99) Calcium Level 9.5mg/dL (8.5-10.1) Magnesium Level 2.1mg/dL (1.6-2.6) Total Bilirubin 0.4mg/dL (0.0-1.2) Aspartate Amino Transf (AST/SGOT) 19U/L (0-50) Alanine Aminotransferase (ALT/SGPT) 27U/L (0-44) Alkaline Phosphatase 64U/L (25-160) Troponin T 0.010ug/L (0.0-0.011) Total Protein 7.0g/dL (6.4-8.4) Albumin 4.4g/dL (3.4-5.0) Lipase 31U/L (13-60) Urine Color Yellow (YELLOW) Urine Appearance Clear (CLEAR,HAZY) Urine pH 6.0 (5.0-8.0) Urine Specific Parnell 1.020 (1.003-1.035) Urine Protein Negativemg/dL (NEG,TRACE) Urine Glucose (UA) Negativemg/dL (NEGATIVE) Urine Ketones Negativemg/dL (NEGATIVE) Urine Occult Blood Trace (NEGATIVE) Urine Nitrite Negative (NEGATIVE) Urine Bilirubin Negative (NEGATIVE) Urine Urobilinogen Normalmg/dL (NORMAL) Urine Leukocyte Esterase Negative (NEGATIVE) Urine RBC 0-2/hpf (0-2) Urine WBC 0-5/hpf (0-5) Urine Epithelial Cells Occasional/hpf (NONE-MOD) Urine Crystals None seen (NONE SEEN) Urine Bacteria Few/hpf (NONE-FEW) Urine Hyaline Casts None/lpf (NONE) Urine Granular Casts None seen (NONE SEEN) Urine Waxy Casts None seen (NONE SEEN) Urine Red Blood Cell Casts None seen (NONE SEEN) Urine White Blood Cell Casts None seen (NONE SEEN) Urine Mucus Present (None Seen) Urine Trichomonas None seen (NONE SEEN) Urine Yeast None (NONE SEEN) Urinalysis Comment None Urine Culture Reflexed Not indicated Lactic Acid Level 1.5mmol/L (0.4-2.0) White Blood Count 11.1th/mm3 (3.8-10.1) Red Blood Count 4.35mil/mm3 (4.40-5.80) Hemoglobin 14.0g/dL (13.8-17.2) Hematocrit 40.6% (41.0-50.0) Mean Corpuscular Volume 93.3fL (81-100) Mean Corpuscular Hemoglobin 32.2pg (27.0-35.0) Mean Corpuscular Hemoglobin Concent 34.5% (32.0-37.0) Red Cell Distribution Width 14.0% (12.3-15.4) Platelet Count 247bil/L (150-400) Neutrophils (%) (Auto) 75.2% (40-74) Lymphocytes (%) (Auto) 15.3% (14-46) Monocytes (%) (Auto) 8.8% (4-12) Eosinophils (%) (Auto) 0.2% (0-5) Basophils (%) (Auto) 0.3% (0-3) General: Alert, Oriented X3, Cooperative, Mild Distress Eyes: PERRLA Mouth: Mucous Membr Moist/Sacred Heart Cardiovascular: Regular Rate/Rhythm Abdomen: Non-distended, Other (small inscisional scare from laproscopy procedure are covered with dressing, clean and dry. (+)BS. NO gaurding with mild tenderness difuesly noted on palpation. ) Extremities: No cyanosis/clubbing/edma bilat Neurological: Grossly Neurologically Intact Discharge Medications As needed oxyCODONE-Acetaminophen 5-325 mg (oxyCODONE-Acetaminophen 5-325 mg) 1 Each Tablet 1-2 TAB PO Q6H PRN PRN For Pain Prescribed by: COLEMAN HOLMAN DO Followup Plan Disposition: Home Follow-up plan Follow up with surgeon in 2 week following discharge. Also recommend FU with PCP in next 1-2 weeks for continuity. Discharge Diet: No restrictions Discharge Activity: Limited until seen by PCP Follow-up Provider: Eloy Brown ND Follow-up with PCP in: 2 weeks Time spent 40 minutes copies to: Eloy Brown ND Vital Signs Vital Sign - Last Date Time Temp Pulse Resp B/P Pulse Ox O2 Delivery O2 Flow Rate FiO2 07/12/16 06:33 36.7 86 20 123/74 94 Room Air 07/11/16 18:35 2.00 Intake and Output 07/11/16 07/11/16 07/12/16 Cumulative From/Thru 15:00 23:00 07:00 07/11/16 00:30 - 07/12/16 06:41 Intake Total 2133 ml 1326 ml 5459 ml Output Total 800 ml 800 ml Balance 1333 ml 1326 ml 4659 ml Intake Oral 400 ml 250 ml 650 ml IV Total 1733 ml 1076 ml 4809 ml Output Gastric Drainage Total 800 ml 800 ml # Voids 2 2 4 # Bowel Movements 1 1 Lab and Diagnostics Result Diagram: 07/11/16 0735 07/11/16 0120 Coleman Holman DO July 12, 2016 12:00
--- NOTE | 2016-07-12 12:36 | NUR ---
discharge went over dc instructions, medications and follow up appointment with patient and his who both verbally acknowledged understanding. Removed IV and tele. Patient left on foot with . No s/s of distress at time of dc
--- NOTE | 2016-07-12 14:44 | NUR ---
SW - Discharge Data: EMR reviewed. Patient is a 61 year old male on day 1 of hospitalization for abdominal pain. Pt medically ready to discharge and is up and independent in room. Pt to discharge home via family in POV when medically stable. No discharge needs identified. Assessment: Pt who is independent at baseline. Plan: Anticipated discharge home via POV when medically ready. No discharge needs identified. VIKTOR Nguyen
== END 2016-07-12 12:36 | disposition home or self-care (01) | DRG 337 ==
LOC: SED 00:23 → MPC 03:23
PROVIDERS: ADMIT Internal Medicine; ATTEND Internal Medicine
PROC: 0DNS4ZZ (ICD-10-PCS; principal; 2016-07-11 17:00)
DX: K56.5 Intestinal adhesions [bands] with obstruction (postinfection) (principal); I71.4 Abdominal aortic aneurysm, without rupture; Z90.49 Acquired absence of other specified parts of digestive tract